=== PATIENT | female | born 1985 | race Two or more races ===

== ENCOUNTER 2017-03-03 13:09 | Emergency (ER) | payer SELFPAY ==
[~2017-03-03] VITALS: Ht 162.6 cm; Wt 83.9 kg
[2017-03-03 13:57] VITALS: BP 117/70
[2017-03-03] MEDS ORDERED: NAPROXEN 500 MG TABLET PO ONE (14:08)
[2017-03-03] MEDS ORDERED: CYCL10TA2 PO (14:10)
[2017-03-03] MEDS ORDERED: NAPR500T3 PO (14:10)
--- NOTE | 2017-03-03 14:10 | PHYS DOC ---
Past Medical History Past Medical History: Other Additional Past Medical Histor: back pain Past Surgical History: Appendectomy, Additional Past Surgical Histo: hernia Alcohol Use: None Drug Use: None Adult General Chief Complaint Chief Complaint: LOWER BACK PAIN OR INJURY [facility] Patient is a 31 year old female presents to the emergency department stating that she's had bilateral lower back pain for the last 4 years. She states that she's seen multiple physicians in regards to this back pain and discomfort. Patient states that she developed increased pain within the last 4 days. She states that she is unable to take ibuprofen as she has and told not to take this medication unless she has having severe pain and discomfort. Patient denies any injury or trauma. She denies any numbness or tingling down into her lower legs. She does state that she has some right knee pain and discomfort with this as well. Patient is able to ambulate with a good steady gait. Patient states she has just moved here from [place] and does not have a primary care physician. Patient states that she has had multiple radiological exams done in [place] with no definite diagnosis. Patient states that she is unable to identify the pain. But she does state that it is a 7 out of a 10. Review of Systems Review of Systems Constitutional: Denies fever or chills [] Eyes: Denies change in visual acuity, redness, or eye pain [] HENT: Denies nasal congestion or sore throat [] Respiratory: Denies cough or shortness of breath [] Cardiovascular: No additional information not addressed in HPI [] GI: Denies abdominal pain, nausea, vomiting, bloody stools or diarrhea [] : Denies dysuria or hematuria [] Musculoskeletal: Complaining of bilateral lower back pain, complaint of right knee pain Integument: Denies rash or skin lesions [] Neurologic: Denies headache, focal weakness or sensory changes [] Endocrine: Denies polyuria or polydipsia [] Physical Exam Physical Exam Constitutional: Well developed, well nourished, no acute distress, non-toxic appearance. [] HENT: Normocephalic, atraumatic, bilateral external ears normal, oropharynx moist, no oral exudates, nose normal. [] Eyes: PERRLA, EOMI, conjunctiva normal, no discharge. [] Neck: Normal range of motion, no tenderness, supple, no stridor. [] Cardiovascular:Heart rate regular rhythm Lungs & Thorax: No respiratory distress noted Skin: Warm, dry, no erythema, no rash. [] Back: Bilateral lower back tenderness noted no discoloration no bruising or redness noted. Extremities: No tenderness, no cyanosis, no clubbing, ROM intact, no edema. Patient with the difficulty bending to touch the toes. Peripheral pulses are 2+ cap refill brisk less than 2 seconds. Right knee pain with no redness no swelling noted tenderness noted. Neurologic: Alert and oriented X 3, normal motor function, normal sensory function, no focal deficits noted. [] Psychologic: Affect normal, judgement normal, mood normal. [] Current Patient Data Vital Signs Vital Signs Date Time Temp Pulse Resp B/P (MAP) Pulse Ox O2 Delivery O2 Flow Rate FiO2 03/03/17 13:57 98.1 67 20 99 Room Air 98.1 EKG EKG [] Radiology/Procedures Radiology/Procedures [] Course & Med Decision Making Course & Med Decision Making Pertinent Labs and Imaging studies reviewed. (See chart for details) Patient states that she had been taken ibuprofen 2 tablets a day. She denies taking any medications this morning. Patient does state her is driving her home. She'll be provided with Flexeril and naproxen here in the emergency department. She'll be provided with a prescription for both Flexeril and naproxen. Patient was instructed Flexeril will cause drowsiness do not take any be alert and oriented. All information in regards to history of present illness and medical decision-making was obtained through the preliminary school psychologist line as patient is Serbian-speaking only. [] Dragon Disclaimer Dragon Disclaimer This electronic medical record was generated, in whole or in part, using a voice recognition dictation system. Departure Departure Impression: Primary Impression: Back pain Additional Impression: Right knee pain Disposition: 01 HOME, SELF-CARE Condition: STABLE Referrals: NO PCP (PCP) Patient Instructions: Back Pain, Adult, [id number], Knee Pain, [id number] Additional Instructions: Activity as tolerated. Naproxen needs to be taken with food stop taking if you develop an upset stomach. Flexeril will cause drowsiness do not take any be alert and oriented. Avoid any strenuous activities such as over excessive bending or lifting. Ice packs to the area on 20 minutes off 20 minutes several times a day. Follow-up with the primary care physician in the next week. Return back to emergency department for signs and symptoms that become worse. Scripts Cyclobenzaprine Hcl (CYCLOBENZAPRINE HCL) 10 Mg Tablet 10 MG PO TID Y for MUSCLE SPASMS, #30 TAB Prov: ANANT MACIAS APRN 03/03/17 Naproxen (NAPROXEN) 500 Mg Tablet 1 TAB PO BID, #60 TAB Prov: ANANT MACIAS APRN 03/03/17 Problem Qualifiers ANANT MACIAS APRN Mar 03, 2017 14:10
[2017-03-03] MEDS ORDERED: CYCLOBENZAPRINE 10 MG TABLET. PO ONE (14:15)
== END 2017-03-03 14:17 | disposition home or self-care (01) ==
LOC: ER 13:09
DX: M54.5 Low back pain (principal); M25.561 Pain in right knee; Z98.890 Other specified postprocedural states; Z90.49 Acquired absence of other specified parts of digestive tract
CPT/HCPCS: 99283

== ENCOUNTER 2017-05-28 09:04 | Emergency (ER) | payer SELFPAY ==
[~2017-05-28 09:04] MED LIST: CYCL10TA2 PO; NAPR500T4 PO
--- NOTE | 2017-05-28 09:08 | PHYS DOC ---
Past Medical History Past Medical History: Other Additional Past Medical Histor: back pain Past Surgical History: Appendectomy, Additional Past Surgical Histo: hernia Alcohol Use: None Drug Use: None Adult General Chief Complaint Chief Complaint: ABDOMINAL PAIN IN [facility] HPI Patient is a 31 year old female who presents with abdominal pain . She states her last missed her period was May 09, she took a home test and states she's . She has not seen an OB as of yet. She is been having bilateral lower suprapubic cramping discomfort last 2 weeks. She denies any nausea vomiting or vaginal bleeding or discharge. She has had some hard stools recently. She states that she feels like the pain is crampy in nature and she is worried that she had a miscarriage. He is a . She denies any vaginal bleeding or discharge. She has had a the past hernia surgery and her appendix removed. She does have an [employer] an appointment scheduled for June 09. Review of Systems Review of Systems Constitutional: Denies fever or chills [] Eyes: Denies change in visual acuity, redness, or eye pain [] HENT: Denies nasal congestion or sore throat [] Respiratory: Denies cough or shortness of breath [] Cardiovascular: No additional information not addressed in HPI [] GI: Positive for abdominal pain, Denies nausea, vomiting, bloody stools or diarrhea [] : Denies dysuria or hematuria [] Musculoskeletal: Denies back pain or joint pain [] Integument: Denies rash or skin lesions [] Neurologic: Denies headache, focal weakness or sensory changes [] Endocrine: Denies polyuria or polydipsia [] Allergies Allergies Allergies Coded Allergies Type Severity Reaction Last Updated Verified No Known Drug Allergies 03/03/17 No Physical Exam Physical Exam Constitutional: Well developed, well nourished, no acute distress, non-toxic appearance. [] HENT: Normocephalic, atraumatic, bilateral external ears normal, oropharynx moist, no oral exudates, nose normal. [] Eyes: PERRLA, EOMI, conjunctiva normal, no discharge. [] Neck: Normal range of motion, no tenderness, supple, no stridor. [] Cardiovascular:Heart rate regular rhythm, no murmur [] Lungs & Thorax: Bilateral breath sounds clear to auscultation [] Abdomen: Bowel sounds normal, soft, mild tender palpation to the suprapubic area , no rebound or guarding, no masses, no pulsatile masses. [] Skin: Warm, dry, no erythema, no rash. [] Back: No tenderness, no CVA tenderness. [] Extremities: No tenderness, no cyanosis, no clubbing, ROM intact, no edema. [] Neurologic: Alert and oriented X 3, normal motor function, normal sensory function, no focal deficits noted. [] Psychologic: Affect normal, judgement normal, mood normal. [] Current Patient Data Vital Signs Vital Signs Date Time Temp Pulse Resp B/P (MAP) Pulse Ox O2 Delivery O2 Flow Rate FiO2 05/28/17 13:18 82 109/65 (80) 100 Room Air 05/28/17 11:25 16 05/28/17 09:25 98.3 98.3 Lab Values Laboratory Tests Test 05/28/17 09:10 05/28/17 09:19 05/28/17 10:24 05/28/17 10:34 Urine Collection Type Unknown Urine Color Yellow Urine Clarity Cloudy Urine pH 7.5 Urine Specific [place] 1.015 Urine Protein Negative mg/dL (NEG-TRACE) Urine Glucose (UA) Negative mg/dL (NEG) Urine Ketones (Stick) Negative mg/dL (NEG) Urine Blood Negative (NEG) Urine Nitrite Negative (NEG) Urine Bilirubin Negative (NEG) Urine Urobilinogen Dipstick 0.2 mg/dL (0.2 mg/dL) Urine Leukocyte Esterase Small (NEG) Urine RBC Occ /HPF (0-2) Urine WBC 0 /HPF (0-4) Urine Squamous Epithelial Cells Mod /LPF Urine Amorphous Sediment Present /HPF Urine Bacteria 0 /HPF (0-FEW) POC Urine HCG, Qualitative Hcg positive (Negative) White Blood Count 9.5 x10^3/uL (4.0-11.0) Red Blood Count 4.43 x10^6/uL (3.50-5.40) Hemoglobin 13.2 g/dL (12.0-15.5) Hematocrit 39.2 % (36.0-47.0) Mean Corpuscular Volume 89 fL (79-100) Mean Corpuscular Hemoglobin 30 pg (25-35) Mean Corpuscular Hemoglobin Concent 34 g/dL (31-37) Red Cell Distribution Width 13.4 % (11.5-14.5) Platelet Count 358 x10^3/uL (140-400) Neutrophils (%) (Auto) 72 % (31-73) Lymphocytes (%) (Auto) 22 % (24-48) L Monocytes (%) (Auto) 5 % (0-9) Eosinophils (%) (Auto) 1 % (0-3) Basophils (%) (Auto) 0 % (0-3) Neutrophils # (Auto) 6.8 x10^3uL (1.8-7.7) Lymphocytes # (Auto) 2.1 x10^3/uL (1.0-4.8) Monocytes # (Auto) 0.4 x10^3/uL (0.0-1.1) Eosinophils # (Auto) 0.1 x10^3/uL (0.0-0.7) Basophils # (Auto) 0.0 x10^3/uL (0.0-0.2) Sodium Level 139 mmol/L (136-145) Potassium Level 3.8 mmol/L (3.5-5.1) Chloride Level 104 mmol/L (98-107) Carbon Dioxide Level 27 mmol/L (21-32) Anion Gap 8 (6-14) Blood Urea Nitrogen 9 mg/dL (7-20) Creatinine 0.6 mg/dL (0.6-1.0) Estimated GFR (Cockcroft-Gault) 118.2 Glucose Level 88 mg/dL (70-99) Calcium Level 9.2 mg/dL (8.5-10.1) Maternal Serum HCG Beta Subunit 5408 mIU/mL (0-5) H Laboratory Tests 05/28/17 10:24 Laboratory Tests 05/28/17 10:24 Microbiology 05/28/17 Wet Prep - Final, Complete Microbiology 05/28/17 Wet Prep - Final, Complete EKG EKG [] Radiology/Procedures Radiology/Procedures RUN DATE: 05/28/17 PAGE 1 RUN TIME: 1016 [facility] [address] [place] [address] Warren Poe M.D., Loader Technician PATIENT: TARIQ NIEVES ACCT: [id number] LOC: ER U : [id number] AGE/SX: 31/F ROOM: REG : 05/28/[address]: ABBIE LAURENT MD : 1985 BED: DIS : STATUS: PRE ER TLOC: SPEC #: [id number] ANDREW: 05/28/17 STATUS: COMP REQ #: [id number] RECD: 05/28/[address] [facility] [address]: ABBIE LAURENT MD SOURCE: VAGINAL ENTR: 05/28/[address] [facility] [address]: DON RUSS SPDESC: ORDERED: WET PREP COMMENTS: Has specimen been collected/obtained? Y Procedure Result WET PREP Final YEAST NONE SEEN TRICHOMONAS NONE SEEN CLUE CELLS NONE SEEN SQUAMOUS EPS MODERATE END OF REPORT Impressions: UTI Abdominal pain and Course & Med Decision Making Course & Med Decision Making Pertinent Labs and Imaging studies reviewed. (See chart for details) Ultrasound shows partially 5 weeks with no pole or cardiac activity. They do see a gestational sac with yolk sac. Beta Quant around 5000. I spoke with Dr. Lozano who is okay with the patient be discharged home he is not worried about ectopic . She has an appointment in 2 weeks with OB to do an ultrasound. She is instructed to follow-up in 2 weeks, return to ER for worsening pain bleeding or other concerns. She's being discharged with antibiotics for bacteriuria. Her and her are agreeable to the plan of being discharged, she is in stable condition at this time. Dragon Disclaimer Dragon Disclaimer This electronic medical record was generated, in whole or in part, using a voice recognition dictation system. Departure Departure Impression: Primary Impression: Abdominal pain affecting Disposition: 01 HOME, SELF-CARE Condition: STABLE Referrals: NO PCP (PCP) Patient Instructions: Abdominal Pain During , [id number] Scripts Nitrofurantoin Monohyd/M-Cryst (MACROBID 100 MG CAPSULE) 100 Mg Capsule 1 CAP PO BID, #20 CAP Prov: ABBIE LAURENT MD 05/28/17 ABBIE LAURENT MD May 28, 2017 09:08
[2017-05-28 09:48] LABS: BILIRUBIN,URINE NEGATIVE (NEG); GLUCOSE,URINE NEGATIVE (NEG); NITRITE,URINE NEGATIVE (NEG); PH,URINE 7.5; PROTEIN,URINE NEGATIVE (NEG-TRACE); UROBILINOGEN,URINE 0.2 mg/dL (0.2 mg/dL)
[2017-05-28 10:06] LABS: BACTERIA,URINE 0 /HPF (0-FEW); RBC,URINE OCC /HPF (0-2); SQUAMOUS EPITHELIAL CELL,UR MOD /LPF; WBC,URINE 0 /HPF (0-4)
[2017-05-28 10:35] LABS: BASO % 0 % (0-3); EOS % 1 % (0-3); HEMATOCRIT 39.2 % (36.0-47.0); HEMOGLOBIN 13.2 g/dL (12.0-15.5); LYMPH # 2.1 x10^3/uL (1.0-4.8); LYMPH % 22 % (24-48); MEAN CORPUSCULAR HEMOGLOBIN 30 pg (25-35); MEAN CORPUSCULAR HGB CONC 34 g/dL (31-37); MEAN CORPUSCULAR VOLUME 89 fL (79-100); MONO % 5 % (0-9); NEUT % 72 % (31-73); PLATELET COUNT 358 x10^3/uL (140-400); RED BLOOD COUNT 4.43 x10^6/uL (3.50-5.40); RED CELL DISTRIBUTION WIDTH 13.4 % (11.5-14.5); WHITE BLOOD COUNT 9.5 x10^3/uL (4.0-11.0)
[2017-05-28 10:36] LABS: CALCIUM 9.2 mg/dL (8.5-10.1); CREATININE 0.6 mg/dL (0.6-1.0); GFR 118.2; POTASSIUM 3.8 mmol/L (3.5-5.1)
[2017-05-28] MEDS ORDERED: NITR100C62 PO (13:13)
[2017-05-28 13:18] VITALS: BP 109/65
--- NOTE | 2017-05-28 15:20 | RAD ---
Indication pelvic pain. An early obstetrical ultrasound examination was performed. A few transabdominal scans were obtained at the bladder was insufficiently distended. The initial transabdominal scans were supplemented with transvaginal scans. No prior imaging is available The uterus measures approximately 8 x 6.5 x 5 cm. Within the uterus is a gestational sac and yolk sac. Findings are compatible with a gestational age of approximately 5 weeks. No pole or cardiac activity is yet seen. The left ovary appears unremarkable. There is a 1.5 cm mass associated with the right ovary compatible with a physiologic cyst. No significant free fluid was seen in the pelvis. IMPRESSION: Findings compatible with an early of approximately 5 weeks. No pole or cardiac activity is yet seen. Physiologic cyst associated with the right ovary
== END 2017-05-28 13:34 | disposition home or self-care (01) ==
LOC: ER 09:04
DX: O26.891 Other specified pregnancy related conditions, first trimester (principal); R10.31 Right lower quadrant pain; R10.32 Left lower quadrant pain; Z3A.01 Less than 8 weeks gestation of pregnancy
CPT/HCPCS: 36415; 76801; 80048; 81001; 81025; 84702; 85025; 87086; 87491; 87591; 99285; Q0111

== ENCOUNTER 2017-05-31 10:05 | Emergency (ER) | payer SELFPAY ==
[~2017-05-31 10:05] MED LIST changes: +NITR100C62 PO
--- NOTE | 2017-05-31 11:06 | PHYS DOC ---
Past Medical History Past Medical History: No Pertinent History Additional Past Medical Histor: back pain Past Surgical History: Appendectomy, Additional Past Surgical Histo: umbilical hernia Alcohol Use: None Drug Use: None Adult General Chief Complaint Chief Complaint: VAGINAL BLEEDING HPI HPI Patient is a 31 year old female who presents with anginal bleeding. She had sexual intercourse last night around 7 PM and this morning at 8:00 she noticed vaginal bleeding. She's been having abdominal pain for the last several days. She denies any dysuria. She felt lightheaded and dizzy yesterday. Review of Systems Review of Systems Constitutional: Denies fever or chills [] Eyes: Denies change in visual acuity, redness, or eye pain [] HENT: Denies nasal congestion or sore throat [] Respiratory: Denies cough or shortness of breath [] Cardiovascular: No additional information not addressed in HPI [] GI: Denies abdominal pain, nausea, vomiting, bloody stools or diarrhea [] : Denies dysuria or hematuria [] Musculoskeletal: Denies back pain or joint pain [] Integument: Denies rash or skin lesions [] Neurologic: Denies headache, focal weakness or sensory changes [] Endocrine: Denies polyuria or polydipsia [] Allergies Allergies Allergies Coded Allergies Type Severity Reaction Last Updated Verified No Known Drug Allergies 03/03/17 No Physical Exam Physical Exam Constitutional: Well developed, well nourished, no acute distress, non-toxic appearance. [] HENT: Normocephalic, atraumatic, bilateral external ears normal, oropharynx moist, no oral exudates, nose normal. [] Eyes: PERRLA, EOMI, conjunctiva normal, no discharge. [] Neck: Normal range of motion, no tenderness, supple, no stridor. [] Cardiovascular:Heart rate regular rhythm, no murmur [] Lungs & Thorax: Bilateral breath sounds clear to auscultation [] Abdomen: Bowel sounds normal, soft, no tenderness, no masses, no pulsatile masses. [] Skin: Warm, dry, no erythema, no rash. [] Back: No tenderness, no CVA tenderness. [] Extremities: No tenderness, no cyanosis, no clubbing, ROM intact, no edema. [] Neurologic: Alert and oriented X 3, normal motor function, normal sensory function, no focal deficits noted. [] Psychologic: Affect normal, judgement normal, mood normal. [] Current Patient Data Vital Signs Vital Signs Date Time Temp Pulse Resp B/P (MAP) Pulse Ox O2 Delivery O2 Flow Rate FiO2 05/31/17 14:55 80 18 105/70 (82) 97 Room Air 05/31/17 14:55 98.7 98.7 Lab Values Laboratory Tests Test 05/31/17 11:10 05/31/17 12:30 05/31/17 14:33 Urine Collection Type Void Urine Color [place] Urine Clarity Clear Urine pH 6.0 Urine Specific [place] 1.010 Urine Protein 30 mg/dL (NEG-TRACE) Urine Glucose (UA) Negative mg/dL (NEG) Urine Ketones (Stick) Negative mg/dL (NEG) Urine Blood Large (NEG) Urine Nitrite Negative (NEG) Urine Bilirubin Negative (NEG) Urine Urobilinogen Dipstick 0.2 mg/dL (0.2 mg/dL) Urine Leukocyte Esterase Trace (NEG) Urine RBC >40 /HPF (0-2) Urine WBC Occ /HPF (0-4) Urine Squamous Epithelial Cells Few /LPF Urine Bacteria Few /HPF (0-FEW) Urine Mucus Slight /LPF White Blood Count 10.8 x10^3/uL (4.0-11.0) Red Blood Count 4.45 x10^6/uL (3.50-5.40) Hemoglobin 13.3 g/dL (12.0-15.5) Hematocrit 39.2 % (36.0-47.0) Mean Corpuscular Volume 88 fL (79-100) Mean Corpuscular Hemoglobin 30 pg (25-35) Mean Corpuscular Hemoglobin Concent 34 g/dL (31-37) Red Cell Distribution Width 13.8 % (11.5-14.5) Platelet Count 347 x10^3/uL (140-400) Neutrophils (%) (Auto) 76 % (31-73) H Lymphocytes (%) (Auto) 19 % (24-48) L Monocytes (%) (Auto) 5 % (0-9) Eosinophils (%) (Auto) 1 % (0-3) Basophils (%) (Auto) 0 % (0-3) Neutrophils # (Auto) 8.2 x10^3uL (1.8-7.7) H Lymphocytes # (Auto) 2.0 x10^3/uL (1.0-4.8) Monocytes # (Auto) 0.5 x10^3/uL (0.0-1.1) Eosinophils # (Auto) 0.1 x10^3/uL (0.0-0.7) Basophils # (Auto) 0.0 x10^3/uL (0.0-0.2) Maternal Serum HCG Beta Subunit 64828 mIU/mL (0-5) H Laboratory Tests 05/31/17 12:30 EKG EKG [] Radiology/Procedures Radiology/Procedures [facility] [address] [place] [address] IMAGING REPORT Signed PATIENT: TARIQ NIEVES ACCOUNT: [id number] : 1985 LOCATION: ER AGE: 31 SEX: F EXAM STATUS: REG ER ORD. PHYSICIAN: ABBIE LAURENT MD REASON: vaginal bleeding PROCEDURE: OB < 14 WKS First trimester ultrasound less than 14 weeks: History: Vaginal bleeding. . Comparison: May 28, 2017. Findings: Transabdominal study: The uterus is anteverted in position. The endometrial canal is echogenic consistent with state. Gestational sac appear within the fundus of the uterus. Transvaginal sonography will be performed. No free fluid is evident. Neither ovary is visualized. No adnexal mass is seen. . Transvaginal study: A gestational sac is seen within the fundal portion of the uterus containing a sac. No pole or heartbeat is seen yet. Average gestational sac size: 1.1 cm which corresponds to an approximate gestational age of 5 weeks and 6 days EDC is January 25, 2018. There as been normal interval growth from the previous sonogram. Sac shape and amniotic fluid volume: Normal. Placenta location: Indeterminate due to the early stage of gestation. Cervical length: Greater than 3.0 cm. Extrachorionic hemorrhage: None. Uterus: No uterine fibroids are seen. Maternal ovaries: Right ovary: 2.0 cm x 2.3 cm x 1.9 cm. There is a 1 cm corpus luteum cyst of the right ovary. Left ovary: 3.2 cm x 1.7 cm x 1.9 cm. Normal. Adnexa: no adnexal masses are seen. Free fluid: None. Impression: Single gestational sac containing a yolk sac is identified within the fundal portion of the right side of the uterus with an approximate gestational age of 5 weeks and 6 days. No pole or heartbeat is seen yet. DICTATED and SIGNED BY: ODELL DU MD DATE: 05/31/17 1234 CC: ABBIE LAURENT MD; NO PCP ~ Impressions: Threatened miscarriage Course & Med Decision Making Course & Med Decision Making Pertinent Labs and Imaging studies reviewed. (See chart for details) Ultrasound did not show any acute abnormalities. She states she's having minimal bleeding at this time. She is very scared about going home that she might be miscarrying. I explained to her that we could admit her to the hospital or to her go home and if she feels worse she can always come back. She feels more comfortable going home knowing that she can come back. Her and her daughter was in the room during these conversations. The monogram technician's phone was used. She still has Macrobid at home for her bacteriuria. Return precautions given. She is agreeable to the plan and being discharged in stable condition at this time. Pelvic rest is encouraged until she follows up with her FABR[employer] DEPARTMENT SUPERVISOR physician. Derick Disclaimer Dragon Disclaimer This electronic medical record was generated, in whole or in part, using a voice recognition dictation system. Departure Departure Impression: Primary Impression: Threatened miscarriage Disposition: 01 HOME, SELF-CARE Condition: STABLE Referrals: NO PCP (PCP) Patient Instructions: Threatened Miscarriage Additional Instructions: You were seen today for your vaginal bleeding in . Your ultrasound of the baby did not show any abnormalities. It is still extremely early in your . You might he have a miscarriage and over the next several days we'll determine this. You will need to follow-up with your FABRICATION DEPARTMENT SUPERVISOR within the next few weeks. If you develop worsening vaginal bleeding, increasing pain, he felt lightheaded dizzy we have other concerns please return back to emergency department. You did receive a RhoGAM shot because your blood type is A-. ABBIE LAURENT MD May 31, 2017 11:06
[2017-05-31 11:53] LABS: BACTERIA,URINE FEW /HPF (0-FEW); BILIRUBIN,URINE NEGATIVE (NEG); GLUCOSE,URINE NEGATIVE (NEG); NITRITE,URINE NEGATIVE (NEG); PROTEIN,URINE 30 mg/dL (NEG-TRACE); RBC,URINE >40 /HPF (0-2); UROBILINOGEN,URINE 0.2 mg/dL (0.2 mg/dL); WBC,URINE OCC /HPF (0-4)
[2017-05-31 11:54] LABS: SQUAMOUS EPITHELIAL CELL,UR FEW /LPF
--- NOTE | 2017-05-31 12:45 | RAD ---
First trimester ultrasound less than 14 weeks: History: Vaginal bleeding. . Comparison: May 28, 2017. Findings: Transabdominal study: The uterus is anteverted in position. The endometrial canal is echogenic consistent with state. Gestational sac appear within the fundus of the uterus. Transvaginal sonography will be performed. No free fluid is evident. Neither ovary is visualized. No adnexal mass is seen. . Transvaginal study: A gestational sac is seen within the fundal portion of the uterus containing a sac. No pole or heartbeat is seen yet. Average gestational sac size: 1.1 cm which corresponds to an approximate gestational age of 5 weeks and 6 days EDC is January 25, 2018. There as been normal interval growth from the previous sonogram. Sac shape and amniotic fluid volume: Normal. Placenta location: Indeterminate due to the early stage of gestation. Cervical length: Greater than 3.0 cm. Extrachorionic hemorrhage: None. Uterus: No uterine fibroids are seen. Maternal ovaries: Right ovary: 2.0 cm x 2.3 cm x 1.9 cm. There is a 1 cm corpus luteum cyst of the right ovary. Left ovary: 3.2 cm x 1.7 cm x 1.9 cm. Normal. Adnexa: no adnexal masses are seen. Free fluid: None. Impression: Single gestational sac containing a yolk sac is identified within the fundal portion of the right side of the uterus with an approximate gestational age of 5 weeks and 6 days. No pole or heartbeat is seen yet.
[2017-05-31 12:59] LABS: BASO % 0 % (0-3); EOS % 1 % (0-3); HEMATOCRIT 39.2 % (36.0-47.0); HEMOGLOBIN 13.3 g/dL (12.0-15.5); LYMPH % 19 % (24-48); MEAN CORPUSCULAR HEMOGLOBIN 30 pg (25-35); MEAN CORPUSCULAR HGB CONC 34 g/dL (31-37); MEAN CORPUSCULAR VOLUME 88 fL (79-100); MONO % 5 % (0-9); NEUT % 76 % (31-73); PLATELET COUNT 347 x10^3/uL (140-400); RED BLOOD COUNT 4.45 x10^6/uL (3.50-5.40); RED CELL DISTRIBUTION WIDTH 13.8 % (11.5-14.5); WHITE BLOOD COUNT 10.8 x10^3/uL (4.0-11.0)
[2017-05-31 14:55] VITALS: BP 105/70
--- NOTE | 2017-06-02 13:05 | RAD ---
REASON: vaginal bleeding PROCEDURE: OB < 14 WKS First trimester ultrasound less than 14 weeks: History: Vaginal bleeding. . Comparison: May 28, 2017. Findings: Transabdominal study: The uterus is anteverted in position. The endometrial canal is echogenic consistent with state. Gestational sac appear within the fundus of the uterus. Transvaginal sonography will be performed. No free fluid is evident. Neither ovary is visualized. No adnexal mass is seen. . Transvaginal study: A gestational sac is seen within the fundal portion of the uterus containing a sac. No pole or heartbeat is seen yet. Average gestational sac size: 1.1 cm which corresponds to an approximate gestational age of 5 weeks and 6 days EDC is January 25, 2018. There as been normal interval growth from the previous sonogram. Sac shape and amniotic fluid volume: Normal. Placenta location: Indeterminate due to the early stage of gestation. Cervical length: Greater than 3.0 cm. Extrachorionic hemorrhage: None. Uterus: No uterine fibroids are seen. Maternal ovaries: Right ovary: 2.0 cm x 2.3 cm x 1.9 cm. There is a 1 cm corpus luteum cyst of the right ovary. Left ovary: 3.2 cm x 1.7 cm x 1.9 cm. Normal. Adnexa: no adnexal masses are seen. Free fluid: None. Impression: Single gestational sac containing a yolk sac is identified within the fundal portion of the right side of the uterus with an approximate gestational age of 5 weeks and 6 days. No pole or heartbeat is seen yet. DICTATED and SIGNED BY: ODELL DU MD DATE: 05/31/17 1234 [facility]
== END 2017-05-31 15:45 | disposition home or self-care (01) ==
LOC: ER 10:05
DX: O20.0 Threatened abortion (principal); Z3A.01 Less than 8 weeks gestation of pregnancy
CPT/HCPCS: 36415; 76801; 76817; 81001; 84702; 85025; 86850; 86900; 86901; 87086; 99285; J2791